=== PATIENT | female | born 1945 | race Asian ===

== ENCOUNTER 2023-09-23 20:25 | Inpatient (IN) | payer MEDICARE, MEDICAID, SELFPAY ==
[2023-09-23] VITALS (13 sets, daily range): BP systolic 92–156; BP diastolic 59–90; PULSE 67–84; RESP 20–40; TEMP 37.3; O2SAT 74–100
--- NOTE | 2023-09-23 20:33 | DI.RAD.S_ITS ---
PROCEDURE: XR CHEST 1V INDICATIONS: Dyspnea TECHNIQUE: One view of the chest was acquired. COMPARISON: None. FINDINGS: Surgical changes and devices: A right-sided vascular stent is seen. Lungs and pleura: Extensive airspace opacities are seen scattered throughout right hemithorax. Subtle opacities also seen in left mid and lower lung field. No pleural effusions or pneumothorax. Mediastinum: Aortic arch calcification is seen. Heart size is enlarged. Bones and chest wall: No suspicious bony lesions. Overlying soft tissues appear unremarkable. IMPRESSION: Finding is concerning for right worse than left bilateral pulmonary infiltrates. No pleural effusion or pneumothorax. Dictated by: Alex Jackson M.D. on 09/23/2023 at 21:04 Approved by: Alex Jackson M.D. on 09/23/2023 at 21:06
[2023-09-23 21:02] LABS: Add Manual Diff / Slide Review NO; Basophils Absolute Auto 100 /uL (0-100); Basophils Percent Auto 0.6 % (0-2); Eosinophils Absolute Auto 500 /uL (0-450); Eosinophils Percent Auto 3.4 % (2-4); Hematocrit 24.9 % (36-46); Hemoglobin 8.4 g/dL (12.0-16.0); Lymphocytes Absolute Auto 800 /uL (1100-4500); Mean Corpuscular HGB Conc 33.7 % (30-36); Mean Corpuscular Hemoglobin 30.2 PG (26-34); Mean Corpuscular Volume 89.6 fL (80-100); Monocytes Absolute Auto 1100 /uL (0-900); Monocytes Percent Auto 7.7 % (3-14); Neutrophils Absolute Auto 11700 /uL (1500-7000); Neutrophils Percent Auto 82.3 % (50-75); Platelet Count 368 X10^3/uL (150-400); Red Blood Cell Count 2.78 X10^6/uL (4.0-5.2); Red Cell Distribution Width 16.6 % (11.6-14.8); White Blood Cell Count 14.2 X10^3/uL (4.5-11.0)
[2023-09-23 21:23] LABS: Alanine Aminotransferase 35 IU/L (<35); Albumin 4.3 g/dL (3.5-5.0); Albumin Globulin Ratio 0.9 (1.0-2.8); Alkaline Phosphatase 115 U/L (38-126); Aspartate Aminotransferase 36 IU/L (14-36); BUN Creatinine Ratio 7.9 (6-22); Bilirubin Total 0.8 mg/dL (0.2-1.3); Blood Urea Nitrogen 51 mg/dL (7-17); Calcium 9.5 mg/dL (8.4-10.2); Carbon Dioxide 33 mmol/L (22-32); Chloride 89 mmol/L (98-107); Estimated Glomerular Filt Rate 6 mL/min (>60); Globulin 4.8 g/dL (1.7-4.1); Glucose 322 mg/dL (80-110); HEMOLYSIS < 15 (0-50); Potassium 4.4 mmol/L (3.4-5.1); Sodium 134 mmol/L (137-145); Total Protein 9.1 g/dL (6.3-8.2)
[2023-09-23 21:34] LABS: NT-proBNP (BNP-Adult 18+) 21600 pg/mL (<450); Troponin I 0.022 ng/mL (0.01-0.034)
[2023-09-23 21:57] LABS: Influenza A - CEPHEID Flu A NEGATIVE (NEGATIVE); Influenza B - CEPHEID Flu B NEGATIVE (NEGATIVE); Respiratory Syncytial Virus Negative (Negative)
[2023-09-23 21:58] LABS: COVID-19 CEPHEID 4-PLEX PCR POSITIVE (Negative)
[2023-09-23] MEDS: DEXAMETHASONE 10 MG/ML VIAL 6 MG IV (22:49)
[2023-09-24] VITALS (83 sets, daily range): BP systolic 83–134; BP diastolic 50–79; PULSE 66–86; RESP 0–52; O2SAT 89–100
[2023-09-24] MEDS: REMDESIVIR 200 MG in SODIUM CHLORIDE 0.9% 250 ML 250 MG IV (00:02)
--- NOTE | 2023-09-24 00:32 | ED_ITS ---
HPI - SOB/Dyspnea General Chief Complaint: Shortness of Breath/Dyspnea Stated Complaint: Oxygen sats at 74% Time Seen by Provider: 09/23/23 20:33 Source: patient and family Mode of arrival: Wheelchair History of Present Illness HPI Narrative: 78-year-old female who presents with hypoxemia, with reported pulse oximetry readings at home in the 70s to 80s on room air. Patient does not require supplemental oxygen at baseline. Patient has a history of chronic kidney disease and is dialysis dependent. Patient's dialysis schedule is Monday, Monday and Monday with patient receiving dialysis yesterday without incident. Family reports that dyspnea has worsened over the last several days and patient has been dealing with cold-like symptoms since Karri. No other complaints or associated symptoms noted. Patient arrives awake, alert, in no apparent distress and maintaining her own airway. Related Data Allergies Allergy/AdvReac Type Severity Reaction Status Date / Time lisinopril Allergy Verified 09/23/23 20:42 Review of Systems Review of Systems Narrative: See HPI for pertinent positives, otherwise review of systems negative Patient History Substance Use Type: does not use Exam Narrative Exam Narrative: General:? Awake, alert, lying in bed during both exam and interview HEENT:? Normocephalic, atraumatic, pupils equal and reactive to light, trachea midline, neck is supple Chest:? Normal to inspection, no crepitus, no tenderness Cardiovascular:? 2+ radial bilaterally, regular rhythm/rate Pulmonary:? Regular respirations, tachypnea, increased work of breathing, rhonchi present in all lung damon bilaterally Abdomen:? Soft, nontender, no hernia Back: ?Normal range of motion :? Exam deferred Skin:? Warm, dry, intact, no rashes Extremities:? No deformities of bilateral upper/lower extremities, non-tender Neuro:? No focal neurological deficits, moving all 4 extremities equally normal speech Psych:? Normal mood, normal affect, normal attention Initial Vital Signs Initial Vital Signs: Vital Signs Temperature 99.1 F 09/23/23 20:26 Pulse Rate 84 09/23/23 20:26 Respiratory Rate 40 H 09/23/23 20:26 Blood Pressure 156/72 H 09/23/23 20:26 Pulse Oximetry 74 L 09/23/23 20:26 Oxygen Delivery Method Room Air 09/23/23 20:26 Course Course Course Narrative: See MDM Orders Ordered: ED Orders 09/24/23 00:32 ABG [Arterial Blood Gas] Stat 09/24/23 04:25 Urinalysis and Microscopic Stat Discontinued Medications Dexamethasone (Dexamethasone 10 Mg/Ml Vial) 6 mg IV NOW ONE Stop: 09/23/23 22:40 Last Admin: 09/23/23 22:49 Dose: 6 mg Documented By: MAHAMED Remdesivir 200 mg/ Sodium (Chloride) 250 mls @ 250 mls/hr IV NOW ONE Stop: 09/24/23 00:49 Last Infusion: 09/24/23 01:17 Dose: Infused Documented By: Admin: 09/24/23 00:02 Dose: 250 mls/hr Documented By: MAHAMED Sodium Chloride (Normal Saline 0.9%) 1,000 mls @ 1,000 mls/hr IV BOLUS ONE Stop: 09/24/23 03:33 Last Admin: 09/24/23 06:05 Dose: Not Given Documented By: MAHAMED Vital Signs Vital signs: Vital Signs - 8 hr 09/23/23 23:00 09/23/23 23:01 09/23/23 23:01 Pulse Rate 72 72 Respiratory Rate 20 23 Blood Pressure 92/59 L Pulse Oximetry 88 L 89 L Oxygen Delivery Method Oximask Oximask Oxygen Flow Rate 8 8 09/23/23 23:30 09/23/23 23:31 09/23/23 23:31 Pulse Rate 67 67 Respiratory Rate 23 25 H Blood Pressure 106/66 Pulse Oximetry 100 100 Oxygen Delivery Method Non -Rebreather Non -Rebreather Oxygen Flow Rate 15 09/24/23 00:00 09/24/23 00:30 09/24/23 00:30 Pulse Rate 66 74 Respiratory Rate 23 36 H Blood Pressure 102/67 Pulse Oximetry 100 89 L Oxygen Delivery Method Non -Rebreather Oximask Oxygen Flow Rate 15 8 09/24/23 01:00 09/24/23 01:00 09/24/23 01:30 Pulse Rate 74 Respiratory Rate Blood Pressure 92/58 L 90/52 L Pulse Oximetry 95 Oxygen Delivery Method Oximask Oximask Oximask Oxygen Flow Rate 10 10 10 09/24/23 01:30 09/24/23 02:00 09/24/23 02:01 Pulse Rate 70 72 Respiratory Rate 28 H 26 H Blood Pressure 108/58 L Pulse Oximetry 97 97 Oxygen Delivery Method Oxygen Flow Rate 09/24/23 02:01 09/24/23 02:30 09/24/23 02:30 Pulse Rate 71 71 Respiratory Rate 25 H 32 H Blood Pressure 98/55 L Pulse Oximetry 98 98 Oxygen Delivery Method Oximask Oximask Oxygen Flow Rate 10 8 09/24/23 03:00 09/24/23 03:00 09/24/23 03:30 Pulse Rate 67 Respiratory Rate 36 H Blood Pressure 84/56 L 92/54 L Pulse Oximetry 100 Oxygen Delivery Method Oximask Oxygen Flow Rate 10 09/24/23 03:30 09/24/23 04:00 09/24/23 04:00 Pulse Rate 72 78 Respiratory Rate 29 H 26 H Blood Pressure 132/79 Pulse Oximetry 100 94 Oxygen Delivery Method Oximask Oximask Oxygen Flow Rate 8 8 09/24/23 04:30 09/24/23 04:31 09/24/23 04:31 Pulse Rate 72 72 Respiratory Rate 52 H 49 H Blood Pressure 86/59 L Pulse Oximetry 96 96 Oxygen Delivery Method Oximask Oximask Oxygen Flow Rate 6 6 09/24/23 05:00 09/24/23 05:00 09/24/23 05:30 Pulse Rate 77 75 Respiratory Rate 28 H 29 H Blood Pressure 93/63 Pulse Oximetry 91 95 95 Oxygen Delivery Method Oximask Oximask Oxygen Flow Rate 10 10 09/24/23 06:00 09/24/23 06:00 09/24/23 06:30 Pulse Rate 76 70 Respiratory Rate 31 H Blood Pressure 105/57 L Pulse Oximetry 93 94 Oxygen Delivery Method Oximask Oxygen Flow Rate 10 09/24/23 06:31 09/24/23 06:31 Pulse Rate 70 Respiratory Rate Blood Pressure 99/50 L Pulse Oximetry 95 Oxygen Delivery Method Oxygen Flow Rate MDM - SOB/Dyspnea Differential Diagnosis Differential diagnosis: Likely acute exacerbation of chronic obstructive airways disease, congestive heart failure, community acquired pneumonia, asthma with exacerbation, pulmonary embolism and other (Pulmonary edema, viral syndrome) Lab Data Lab results narrative: Leukocytosis, hyponatremia, laboratory findings consistent with chronic kidney disease 09/23/23 20:50 09/23/23 20:50 Labs: Lab Results 09/23/23 09/23/23 09/24/23 Range/Units 20:50 20:55 00:32 WBC 14.2 H (4.5-11.0) X10^3/uL RBC 2.78 L (4.0-5.2) X10^6/uL Hgb 8.4 L (12.0-16.0) g/dL Hct 24.9 L (36-46) % MCV 89.6 (80-100) fL MCH 30.2 (26-34) PG MCHC 33.7 (30-36) % RDW 16.6 H (11.6-14.8) % Plt Count 368 (150-400) X10^3/uL Neut % (Auto) 82.3 H (50-75) % Lymph % (Auto) 6.0 L (25-40) % Wright % (Auto) 7.7 (3-14) % Eos % (Auto) 3.4 (2-4) % Baso % (Auto) 0.6 (0-2) % Neut # (Auto) 23414 H (5356-4648) /uL Lymph # (Auto) 800 L (7075-1837) /uL Wright # (Auto) 1100 H (0-900) /uL Eos # (Auto) 500 H (0-450) /uL Baso # (Auto) 100 (0-100) /uL ABG Sample Site Left radial ABG pH 7.47 H (7.35-7.45) ABG pCO2 45.5 H (35-45) mmHg ABG pO2 48 L* (80-100) mmHg ABG HCO3 33 H (23-27) mmol/L ABG Total CO2 34 H (23-27) mmol/L ABG O2 Saturation 85 L* (95-100) % ABG Base Excess 9.0 H (-2-3) mmol/L FiO2 70 Sodium 134 L (137-145) mmol/L Potassium 4.4 (3.4-5.1) mmol/L Chloride 89 L (98-107) mmol/L Carbon Dioxide 33 H (22-32) mmol/L BUN 51 H (7-17) mg/dL Creatinine 6.42 H (0.52-1.04) mg/dL Estimated GFR 6 L (>60) mL/min BUN/Creatinine Ratio 7.9 (6-22) Glucose 322 H (80-110) mg/dL Calcium 9.5 (8.4-10.2) mg/dL Total Bilirubin 0.8 (0.2-1.3) mg/dL AST 36 (14-36) IU/L ALT 35 H (<35) IU/L Alkaline Phosphatase 115 (38-126) U/L Troponin I 0.022 (0.01-0.034) ng/mL NT-Pro-B Natriuret Pep 77340 H (<450) pg/mL Total Protein 9.1 H (6.3-8.2) g/dL Albumin 4.3 (3.5-5.0) g/dL Globulin 4.8 H (1.7-4.1) g/dL Albumin/Globulin Ratio 0.9 L (1.0-2.8) SARS-CoV-2 (PCR) Positive H (Negative) Influenza A (RT-PCR) Flu a negative (NEGATIVE) Influenza B (RT-PCR) Flu b negative (NEGATIVE) RSV (PCR) Negative (Negative) ECG Data Interpretation: 09/23/2023 at 8:42 p.m., 81 beats per minute, normal sinus rhythm, normal axis, artifact, NM interval 81 beats per minute, prolonged QTC at 494 milliseconds, abnormal EKG MDM Narrative Medical decision making narrative: Patient presents with hypoxemia and acute respiratory failure requiring supplemental oxygen. Patient currently being maintained on 10 L OxyMask with pulse oximetry now reading 96%, normal pulse oximetry on supplemental oxygen. Patient is afebrile. EKG is not suggestive of ACS or significant conduction disturbance. Laboratory findings consistent with chronic kidney disease. Chest x-ray is concerning for atypical/viral pneumonia. COVID-19 positive. Decadron 6 mg IV given along with REmdesivir. Patient is stable and warrants transfer due to dialysis requirements that are unable to be filled here in this hospital. Patient currently is pending transfer to outside facility for inpatient management of COVID pneumonia, acute hypoxic respiratory failure and chronic kidney disease requiring dialysis. Patient stable and signed out to oncoming provider. Please see their note for continuity of care. Discharge Plan Departure Patient Disposition: [facility] Clinical Impression: COVID-19, Hypoxemia, CKD (chronic kidney disease) requiring chronic dialysis
[2023-09-24 00:50] LABS: PCO2 ABG 45.5 mmHg (35-45); pH ABG 7.47 (7.35-7.45)
[2023-09-24 00:51] LABS: Blood Gas Collection Site Left Radial; Fractionated Inspired Oxygen 70; HCO3 ABG 33 mmol/L (23-27); Oxygen Saturation ABG 85 % (95-100); PO2 ABG 48 mmHg (80-100); TCO2 ABG 34 mmol/L (23-27)
[2023-09-24 00:52] LABS: Allen Test for ABG Passed? Yes, Passed
[2023-09-24 11:05] LABS: Appearance Urine UA CLOUDY; Bilirubin Urine UA 1+ (NEGATIVE); Glucose Urine UA NEGATIVE (Negative); Ketones Urine UA TRACE (NEGATIVE); Leukocyte Esterase Urine UA NEGATIVE (NEGATIVE); Nitrite Urine UA NEGATIVE (Negative); Occult Blood Urine UA 3+ (Negative); Protein Urine UA TRACE (Negative); Specific Gravity Urine UA >=1.030 (1.000-1.035); Urobilinogen Urine UA 0.2 E.U./dL (0.2)
[2023-09-24 11:10] LABS: Color Urine UA YELLOW
[2023-09-24 11:22] LABS: Bacteria Urine None Seen; RBC Urine 10-30/HPF (0-5/HPF); Squamous Epithelial Cell Urine None Seen (0-5/HPF); WBC Urine 0-1/HPF (0-5/HPF)
[2023-09-24 11:23] LABS: Amorphous Sediment Urine 4+; Culture Indicated Urine Cult Not Indicated
[2023-09-24] MEDS: INSULIN GLARGINE 100 UNIT/ML 3ML PEN 30 UNIT SUBCUT ×2 (12:32→21:21)
--- NOTE | 2023-09-24 12:53 | PC.NURSE ---
patients daughter in room feeding and cleaning the patient's teeth. While doing oral care the patient coughed and her 02 sat dropped to 90% on 10L oxy mask. The patient's daughter was instructed to be careful about giving her PO fluids or anything by mouth while she was in the beach chair position. The patient was placed in her left side and her oxygenation improved to 97%. The patient is comfortably resting and not in distress at this time.
--- NOTE | 2023-09-24 14:12 | PC.NURSE ---
Addendum entered by Elisabeth Ramon CNA 09/25/23 15:30: Around 1400, this pit shovel operator spoke with [facility], [facility] and Ailyn Linder regarding another pt. and asked for an update on pt. Juan, still no new bed update. [id number] this pit shovel operator contacted [facility] and spoke with Tarun about updated transfer status regarding this pt. No new update at this time, pt. is waitlisted at [facility], [facility] and [facility]. [place] are not accepting pt. to be waitlisted at this time. [place] [facility] [place] transfer center is also at capacity and will not accept pt. on waitlist either. There is a paper copy of record at the [facility] desk of facilities, times/dates and persons spoke with regarding this pt. Will re-contact [facility] at 1900 for update on bed status regarding pt. transfer. Addendum entered by Elisabeth Ramon CNA 09/25/23 09:02: [facility] contacted ED and spoke with this IMPLEMENTATION SPECIALIST PAYROLL about pt. transfer, updated [facility] on pt. is on high flow and still requiring transfer. [facility] is still working on pt. transfer at this time. Addendum entered by Elisabeth Ramon CNA 09/25/23 07:27: xfer ctr. called asked for an update on pt. needing placement, verified that pt. is still on high flow. Addendum entered by Elisabeth Ramon CNA 09/24/23 14:54: this pit shovel operator spoke with pete Roman at [facility], possible bed opening later today, if a bed opens at facility pete forde will call [facility] Original Note: IMPLEMENTATION SPECIALIST PAYROLL note: Contacted facilities that pt. is waitlisted on and no new bed status was available at [facility], [facility], [facility], [facility], and . [id number] today, [facility] contacted the ER and spoke with this IMPLEMENTATION SPECIALIST PAYROLL about this pt. verified that [facility] is working on placement for pt. and no new information about pt. was available.
[2023-09-24] MEDS: SODIUM CHLORIDE 0.9% 1,000 ML 500 ML IV ×2 (15:07→17:04)
[2023-09-24] MEDS: INSULIN REGULAR 100 UNIT/ML 3 ML VIAL 10 UNIT IV (15:17)
[2023-09-24 15:50] LABS: Add Manual Diff / Slide Review NO; Basophils Absolute Auto 100 /uL (0-100); Basophils Percent Auto 0.5 % (0-2); Eosinophils Absolute Auto 0 /uL (0-450); Eosinophils Percent Auto 0.1 % (2-4); Hematocrit 23.1 % (36-46); Hemoglobin 7.8 g/dL (12.0-16.0); Lymphocytes Absolute Auto 500 /uL (1100-4500); Lymphocytes Percent Auto 4.1 % (25-40); Mean Corpuscular HGB Conc 33.7 % (30-36); Mean Corpuscular Volume 89.1 fL (80-100); Monocytes Absolute Auto 100 /uL (0-900); Monocytes Percent Auto 0.7 % (3-14); Neutrophils Absolute Auto 11300 /uL (1500-7000); Neutrophils Percent Auto 94.6 % (50-75); Platelet Count 340 X10^3/uL (150-400); Red Blood Cell Count 2.59 X10^6/uL (4.0-5.2); Red Cell Distribution Width 16.8 % (11.6-14.8); White Blood Cell Count 11.9 X10^3/uL (4.5-11.0)
[2023-09-24 16:30] LABS: BUN Creatinine Ratio 9.4 (6-22); Blood Urea Nitrogen 70 mg/dL (7-17); Calcium 9.2 mg/dL (8.4-10.2); Carbon Dioxide 29 mmol/L (22-32); Chloride 90 mmol/L (98-107); Estimated Glomerular Filt Rate 5 mL/min (>60); Glucose 393 mg/dL (80-110); HEMOLYSIS 18 (0-50); Lactate (Lactic Acid) 1.9 mmol/L (0.7-2.1); Potassium 4.7 mmol/L (3.4-5.1); Sodium 134 mmol/L (137-145)
[2023-09-24] MEDS: REMDESIVIR 100 MG in SODIUM CHLORIDE 0.9% 250 ML 250 MG IV (17:04)
[2023-09-24] MEDS: INSULIN DRIP PREMIX 100 UNIT/100 ML PLAST..BAG 6 UNIT IV (20:37)
[2023-09-24] MEDS: ENOXAPARIN 40 MG/0.4 ML SYRINGE SUBCUT (20:44)
[2023-09-24 20:54] LABS: BUN Creatinine Ratio 9.3 (6-22); Blood Urea Nitrogen 67 mg/dL (7-17); Calcium 8.8 mg/dL (8.4-10.2); Carbon Dioxide 25 mmol/L (22-32); Chloride 96 mmol/L (98-107); Estimated Glomerular Filt Rate 5 mL/min (>60); Glucose 335 mg/dL (80-110); HEMOLYSIS < 15 (0-50); Sodium 136 mmol/L (137-145)
[2023-09-24] MEDS: SODIUM CHLORIDE 0.9% 500 ML 25 ML IV (21:00)
[2023-09-24] MEDS: ATORVASTATIN 20 MG TABLET 40 MG PO (21:25)
[2023-09-24] MEDS: allopurinoL 100 MG TABLET PO (21:29)
[2023-09-25] VITALS (66 sets, daily range): BP systolic 87–150; BP diastolic 49–87; PULSE 57–77; RESP 18–40; TEMP 36.8; O2SAT 90–98; BMI 28.9
[2023-09-25 00:56] LABS: Blood Urea Nitrogen 70 mg/dL (7-17); Carbon Dioxide 26 mmol/L (22-32); Chloride 98 mmol/L (98-107); Estimated Glomerular Filt Rate 5 mL/min (>60); Glucose 182 mg/dL (80-110); HEMOLYSIS < 15 (0-50); Potassium 4.4 mmol/L (3.4-5.1); Sodium 138 mmol/L (137-145)
[2023-09-25 04:24] LABS: Add Manual Diff / Slide Review NO; Basophils Absolute Auto 100 /uL (0-100); Basophils Percent Auto 0.3 % (0-2); Eosinophils Absolute Auto 0 /uL (0-450); Lymphocytes Absolute Auto 700 /uL (1100-4500); Lymphocytes Percent Auto 4.5 % (25-40); Mean Corpuscular HGB Conc 33.1 % (30-36); Mean Corpuscular Hemoglobin 29.4 PG (26-34); Mean Corpuscular Volume 88.8 fL (80-100); Monocytes Absolute Auto 700 /uL (0-900); Monocytes Percent Auto 4.5 % (3-14); Neutrophils Absolute Auto 13600 /uL (1500-7000); Neutrophils Percent Auto 90.7 % (50-75); Platelet Count 361 X10^3/uL (150-400); Red Cell Distribution Width 16.8 % (11.6-14.8)
[2023-09-25 04:34] LABS: BUN Creatinine Ratio 9.4 (6-22); Blood Urea Nitrogen 75 mg/dL (7-17); Calcium 9.2 mg/dL (8.4-10.2); Carbon Dioxide 28 mmol/L (22-32); Chloride 98 mmol/L (98-107); Estimated Glomerular Filt Rate 5 mL/min (>60); Glucose 105 mg/dL (80-110); HEMOLYSIS < 15 (0-50); Potassium 4.7 mmol/L (3.4-5.1); Sodium 139 mmol/L (137-145)
[2023-09-25] MEDS: INSULIN GLARGINE 100 UNIT/ML 3ML PEN 30 UNIT SUBCUT (08:06)
[2023-09-25] MEDS: ENOXAPARIN 40 MG/0.4 ML SYRINGE SUBCUT (08:19)
[2023-09-25] MEDS: TORSEMIDE 10 MG TABLET 40 MG PO (08:20)
[2023-09-25] MEDS: carvediloL 12.5 MG TABLET PO ×2 (08:20→20:52)
[2023-09-25] MEDS: allopurinoL 100 MG TABLET PO ×2 (08:21→20:53)
--- NOTE | 2023-09-25 11:19 | PC.NURSE ---
patient responds to oxygen better when on her left side. She was placed on her back in low beach chair and o2 saturation remained around 90% on 10L Oyxmask. When placed on her left side, her O2 went up to 98%.
--- NOTE | 2023-09-25 15:03 | RT ---
Turned o2 down to 50%
--- NOTE | 2023-09-25 15:45 | PC.NURSE ---
This RN assisted patient off the commode. Patient has no visible skin breakdown on back, bottom, or black area. Patient assisted with hygiene and was able to transfer back to bed with stand by assist.
--- NOTE | 2023-09-25 17:34 | PC.NURSE ---
This patient had her insulin infusion paused by overnight RN. This RN wasted remaining insulin infusion and timed for time of the insulin was paused.
--- NOTE | 2023-09-25 17:37 | PM.CN.EICU ---
History of Present Illness Consult details IF CAMERA ACTIVATED, patient seen via real-time interactive audiovisual communication: Camera activated Date Patient Seen: 09/25/23 Chief complaint: Oxygen sats at 74% Reason for consult: COVID PNA, hypoxemic respiratory failure Requesting provider: Rowdy Flores Consent obtained for tele-it sales representative care: Yes Patient Location: ICU Provider location (State): [place] Other participants/roles: Dr. Flores Narrative: 78 yo F with HTN, DM2, ESRD on HD- Last HD on Monday . She presented to ED with SOB and hypoxemia. Found to be covid + and started on hi flow NC. Currently on decadron, remdesivir and CAP coverage abx. [facility] does not have HD capability, so patient slated to be transferred, however there has been difficulty finding ICU bed for her In mean time she will be admitted to ICU for ongoing care while she awaits transfer to a facility that can accomodate HD Currently her BUN is 71 Cr 8 K 4.7. BNP [id number] She is full code [facility] Medical History (Updated 09/25/23 @ 18:49 by Nguyen Asencio MD) Diabetes Hypertension Current Medications Current Medications Medications: Home Medications allopurinol 100 mg tablet 200 mg PO DAILY 09/24/23 [History Confirmed 09/24/23] amlodipine 10 mg tablet 10 mg PO ONCE PM 09/24/23 [History Confirmed 09/24/23] atorvastatin 40 mg tablet 40 mg PO ONCE PM 09/24/23 [History Confirmed 09/24/23] carvedilol 12.5 mg tablet 12.5 mg PO BID 09/24/23 [History Confirmed 09/24/23] insulin glargine 100 unit/mL subcutaneous solution (Lantus U-100 Insulin) 30 unit SUBCUT BID 09/24/23 [History Confirmed 09/24/23] meclizine 25 mg tablet 25 mg PO QID PRN vertigo 09/24/23 [History Confirmed 09/24/23] torsemide 20 mg tablet 40 mg PO DAILY 09/24/23 [History Confirmed 09/24/23] Visit Medications (administered) Generic Name Dose Route Start Last Admin Trade Name Freq PRN Reason Stop Dose Admin Allopurinol 100 mg 09/24/23 21:00 09/25/23 08:21 Allopurinol 100 Mg Tablet PO 100 mg BID JOVANNY Administration Amlodipine Besylate 10 mg 09/24/23 21:00 09/24/23 21:13 Amlodipine 5 Mg Tablet PO Not Given BEDTIME [facility] Atorvastatin Calcium 40 mg 09/24/23 21:00 09/24/23 21:25 Atorvastatin 20 Mg Tablet PO 40 mg BEDTIME JOVANNY Administration Carvedilol 12.5 mg 09/24/23 21:00 09/25/23 08:20 Carvedilol 12.5 Mg Tablet PO 12.5 mg BID JOVANNY Administration Insulin Glargine 30 unit 09/24/23 21:00 09/25/23 08:06 Insulin Glargine 100 Unit/Ml 3ml Pen SUBCUT 30 unit BID JOVANNY Administration Torsemide 40 mg 09/25/23 09:00 09/25/23 08:20 Torsemide 10 Mg Tablet PO 40 mg DAILY JOVANNY Administration Exam Vital Signs (past 8 hours): - 09/25/23 10:00 09/25/23 10:00 09/25/23 10:30 Pulse Rate 59 L 58 L Respiratory Rate 21 33 H Blood Pressure 120/65 Pulse Oximetry 94 93 Oxygen Delivery Method High Flow Nasal Cannula High Flow Nasal Cannula Oxygen Flow Rate 35 35 09/25/23 10:52 09/25/23 11:00 09/25/23 11:00 Pulse Rate 64 66 Respiratory Rate 18 24 Blood Pressure 120/65 128/77 Pulse Oximetry 94 96 Oxygen Delivery Method High Flow Nasal Cannula Oxygen Flow Rate 35 09/25/23 11:30 09/25/23 12:00 09/25/23 12:00 Pulse Rate 66 70 Respiratory Rate 30 H 28 H Blood Pressure 120/58 L Pulse Oximetry 95 92 Oxygen Delivery Method Oxygen Flow Rate 35 09/25/23 12:30 09/25/23 13:00 09/25/23 13:00 Pulse Rate 66 61 Respiratory Rate 30 H 26 H Blood Pressure 95/55 L Pulse Oximetry 96 96 Oxygen Delivery Method Oxygen Flow Rate 09/25/23 13:30 09/25/23 14:00 09/25/23 14:00 Pulse Rate 62 59 L Respiratory Rate 24 22 Blood Pressure 90/50 L Pulse Oximetry 95 93 Oxygen Delivery Method High Flow Nasal Cannula High Flow Nasal Cannula Oxygen Flow Rate 55 55 09/25/23 14:30 09/25/23 14:54 09/25/23 14:54 Pulse Rate 57 L 65 Respiratory Rate 24 25 H Blood Pressure 97/60 Pulse Oximetry 93 96 Oxygen Delivery Method High Flow Nasal Cannula High Flow Nasal Cannula Oxygen Flow Rate 55 55 09/25/23 15:00 09/25/23 15:00 09/25/23 15:01 Pulse Rate 67 64 Respiratory Rate 22 18 Blood Pressure 96/63 Pulse Oximetry 95 96 Oxygen Delivery Method High Flow Nasal Cannula Oxygen Flow Rate 55 09/25/23 15:30 09/25/23 15:34 09/25/23 15:34 Pulse Rate 72 69 Respiratory Rate 30 H Blood Pressure 87/49 L Pulse Oximetry 95 97 Oxygen Delivery Method High Flow Nasal Cannula High Flow Nasal Cannula Oxygen Flow Rate 50 50 09/25/23 15:36 09/25/23 15:36 09/25/23 15:37 Pulse Rate 68 Respiratory Rate 32 H Blood Pressure 91/56 L 91/56 L Pulse Oximetry 97 Oxygen Delivery Method High Flow Nasal Cannula Oxygen Flow Rate 50 09/25/23 15:37 09/25/23 15:38 09/25/23 15:38 Pulse Rate 68 66 Respiratory Rate 31 H 28 H Blood Pressure 93/54 L Pulse Oximetry 96 96 Oxygen Delivery Method High Flow Nasal Cannula High Flow Nasal Cannula Oxygen Flow Rate 50 50 09/25/23 15:39 09/25/23 15:39 09/25/23 15:40 Pulse Rate 66 Respiratory Rate 28 H Blood Pressure 93/53 L 89/55 L Pulse Oximetry 96 Oxygen Delivery Method High Flow Nasal Cannula Oxygen Flow Rate 50 09/25/23 15:40 09/25/23 16:00 09/25/23 16:00 Pulse Rate 66 66 Respiratory Rate 33 H 21 Blood Pressure 92/61 Pulse Oximetry 96 96 Oxygen Delivery Method High Flow Nasal Cannula Oxygen Flow Rate 50 09/25/23 16:30 09/25/23 16:30 Pulse Rate 65 Respiratory Rate 24 Blood Pressure 100/55 L Pulse Oximetry 96 Oxygen Delivery Method Oxygen Flow Rate Oxygen Delivery Method High Flow Nasal Cannula Oxygen Flow Rate 50 Narrative Exam Narrative: Sitting in bed, on hi flow NC No distress speaking in full sentenes, with no SOB Current hi flow settings 35 L 50% Objective Imaging Chest x-ray: Radiologist's impression: bilateral pulmonary infiltrates Labs 09/25/23 04:15 09/25/23 04:15 Labs: Laboratory Results - last 24 hr 09/24/23 09/25/23 09/25/23 20:25 00:35 04:15 WBC 15.0 H RBC 2.70 L Hgb 8.0 L Hct 24.0 L MCV 88.8 MCH 29.4 MCHC 33.1 RDW 16.8 H Plt Count 361 Neut % (Auto) 90.7 H Lymph % (Auto) 4.5 L D[place]y % (Auto) 4.5 Eos % (Auto) 0.0 L Baso % (Auto) 0.3 Neut # (Auto) 28710 H Lymph # (Auto) 700 L Dooly # (Auto) 700 Eos # (Auto) 0 Baso # (Auto) 100 Sodium 136 L 138 139 Potassium 5.0 4.4 4.7 Chloride 96 L 98 98 Carbon Dioxide 25 26 28 BUN 67 H 70 H 75 H Creatinine 7.18 H 7.79 H* 7.96 H* Estimated GFR 5 L 5 L 5 L BUN/Creatinine Ratio 9.3 9.0 9.4 Glucose 335 H 182 H D 105 Calcium 8.8 9.0 9.2 Assessment & Plan Assessment and plan (1) COVID-19: Status: Acute (2) Hypoxemia: Status: Acute (3) CKD (chronic kidney disease) requiring chronic dialysis: Status: Acute (4) Acute respiratory failure: Qualifiers: Respiratory failure complication: hypoxia Qualified Code(s): J96.01 - Acute respiratory failure with hypoxia Status: Acute (5) Diabetes: Qualifiers: Diabetes mellitus type: type 2 Status: Acute Assessment & Plan narrative: 78 F with ESRD on HD admitted to ICU for ongoing treatment and supportive care for COVID 19 PNA, hypoxemic respiratory failure Suspect there is also an element of volume overload. Last HD 3 days ago BNP [id number] She needs transfer to icu that is capable of doing HD, as is needed for fluid removal. BUN also rising and 71 today. K 4.7 Will obtain ABG today In meantime, continue supportive care for covid-19 with hi flow NC steroids, remdesivir CAP coverage- in case of concurrent bacterial PNA check proclacitonin Continue SKEIN SPOOLER medications for HTN, HLD, DM2 continue SKEIN SPOOLER torsemide PPX; heparin sq, famotidine FULL CODE COVID-19 COVID-19 status: Positive Time Spent With Patient Time with patient: 30 to 49 minutes with 50% spent counseling/coordinating care
[2023-09-25 17:41] LABS: Magnesium 2.7 mg/dL (1.6-2.3)
[2023-09-25 17:58] LABS: Procalcitonin 0.23 ng/mL (<0.5)
--- NOTE | 2023-09-25 18:00 | DI.RAD.S_ITS ---
PROCEDURE: XR CHEST 1V INDICATIONS: assess COVID TECHNIQUE: One view of the chest was acquired. COMPARISON: [facility], CR, XR CHEST 1V, 09/23/2023, 20:41. FINDINGS: Surgical changes and devices: Vascular stent in the right axilla. Lungs and pleura: Multifocal airspace opacities, similar to prior. Mediastinum: Mediastinal contours appear normal. Heart size is enlarged. Bones and chest wall: No suspicious bony lesions. Overlying soft tissues appear unremarkable. IMPRESSION: Similar multifocal airspace opacities, concerning for pneumonia. Dictated by: Jerrod Junior M.D. on 09/25/2023 at 18:46 Approved by: Jerrod Junior M.D. on 09/25/2023 at 18:47
--- NOTE | 2023-09-25 18:02 | P.HP_ITS ---
History of Present Illness History of Present Illness Chief complaint: Oxygen sats at 74% Narrative: Hannah Martinez is an 78yo F with PMH of ESRD on MWF dialysis, DM2, HTN and gout who presents with worsening SOB and found to be COVID positive. Patient daughter is at bedside and giving history as well. Patient hasn't felt well since [place], when she developed a flu-like illness. She continued to worsen in terms of her dyspnea so daughter checked her O2 sats and she was 74% on room air. She was brought to our ED and was COVID positive. ABG showed low pO2. Placed on HFNC and was on up to 50L but has now been weaned down to 35L and 50%. ED was working on transfer for her dialysis, which she last received on Friday 09/22. She currently feels comfortable at rest while on HFNC. Says her breathing is much better then when she came in. She would like to be full code because other than dialysis she is otherwise healthy. She denies CP, NV, abd pain or diarrhea. [facility] Medical History (Updated 09/25/23 @ 17:53 by Nguyen Asencio MD) Diabetes Hypertension Meds Home Medications and Allergies Home Medications Medication Instructions Recorded Confirmed Type allopurinol 100 mg tablet 200 mg PO DAILY 09/24/23 09/24/23 History amlodipine 10 mg tablet 10 mg PO ONCE PM 09/24/23 09/24/23 History atorvastatin 40 mg tablet 40 mg PO ONCE PM 09/24/23 09/24/23 History carvedilol 12.5 mg tablet 12.5 mg PO BID 09/24/23 09/24/23 History insulin glargine 100 unit/mL 30 unit SUBCUT BID 09/24/23 09/24/23 History subcutaneous solution (Lantus U-100 Insulin) meclizine 25 mg tablet 25 mg PO QID PRN vertigo 09/24/23 09/24/23 History torsemide 20 mg tablet 40 mg PO DAILY 09/24/23 09/24/23 History Allergies Allergy/AdvReac Type Severity Reaction Status Date / Time lisinopril Allergy Verified 09/23/23 20:42 Review of Systems Review of Systems Narrative: All other systems reviewed with the patient and are negative unless otherwise stated. Exam Vital Signs (past 8 hours): - 09/25/23 10:30 09/25/23 10:52 09/25/23 11:00 Pulse Rate 58 L 64 Respiratory Rate 33 H 18 Blood Pressure 120/65 128/77 Pulse Oximetry 93 94 Oxygen Delivery Method High Flow Nasal Cannula Oxygen Flow Rate 35 09/25/23 11:00 09/25/23 11:30 09/25/23 12:00 Pulse Rate 66 66 Respiratory Rate 24 30 H Blood Pressure 120/58 L Pulse Oximetry 96 95 Oxygen Delivery Method High Flow Nasal Cannula Oxygen Flow Rate 35 35 09/25/23 12:00 09/25/23 12:30 09/25/23 13:00 Pulse Rate 70 66 Respiratory Rate 28 H 30 H Blood Pressure 95/55 L Pulse Oximetry 92 96 Oxygen Delivery Method Oxygen Flow Rate 09/25/23 13:00 09/25/23 13:30 09/25/23 14:00 Pulse Rate 61 62 Respiratory Rate 26 H 24 Blood Pressure 90/50 L Pulse Oximetry 96 95 Oxygen Delivery Method High Flow Nasal Cannula Oxygen Flow Rate 55 09/25/23 14:00 09/25/23 14:30 09/25/23 14:54 Pulse Rate 59 L 57 L Respiratory Rate 22 24 Blood Pressure 97/60 Pulse Oximetry 93 93 Oxygen Delivery Method High Flow Nasal Cannula High Flow Nasal Cannula Oxygen Flow Rate 55 55 09/25/23 14:54 09/25/23 15:00 09/25/23 15:00 Pulse Rate 65 67 Respiratory Rate 25 H 22 Blood Pressure 96/63 Pulse Oximetry 96 95 Oxygen Delivery Method High Flow Nasal Cannula High Flow Nasal Cannula Oxygen Flow Rate 55 55 09/25/23 15:01 09/25/23 15:30 09/25/23 15:34 Pulse Rate 64 72 Respiratory Rate 18 Blood Pressure 87/49 L Pulse Oximetry 96 95 Oxygen Delivery Method High Flow Nasal Cannula Oxygen Flow Rate 50 09/25/23 15:34 09/25/23 15:36 09/25/23 15:36 Pulse Rate 69 68 Respiratory Rate 30 H 32 H Blood Pressure 91/56 L Pulse Oximetry 97 97 Oxygen Delivery Method High Flow Nasal Cannula High Flow Nasal Cannula Oxygen Flow Rate 50 50 09/25/23 15:37 09/25/23 15:37 09/25/23 15:38 Pulse Rate 68 Respiratory Rate 31 H Blood Pressure 91/56 L 93/54 L Pulse Oximetry 96 Oxygen Delivery Method High Flow Nasal Cannula Oxygen Flow Rate 50 09/25/23 15:38 09/25/23 15:39 09/25/23 15:39 Pulse Rate 66 66 Respiratory Rate 28 H 28 H Blood Pressure 93/53 L Pulse Oximetry 96 96 Oxygen Delivery Method High Flow Nasal Cannula High Flow Nasal Cannula Oxygen Flow Rate 50 50 09/25/23 15:40 09/25/23 15:40 09/25/23 16:00 Pulse Rate 66 Respiratory Rate 33 H Blood Pressure 89/55 L 92/61 Pulse Oximetry 96 Oxygen Delivery Method High Flow Nasal Cannula Oxygen Flow Rate 50 09/25/23 16:00 09/25/23 16:30 09/25/23 16:30 Pulse Rate 66 65 Respiratory Rate 21 24 Blood Pressure 100/55 L Pulse Oximetry 96 96 Oxygen Delivery Method Oxygen Flow Rate 09/25/23 17:00 09/25/23 17:00 09/25/23 17:23 Pulse Rate 67 Respiratory Rate 24 Blood Pressure 105/53 L 129/87 Pulse Oximetry 95 Oxygen Delivery Method High Flow Nasal Cannula Oxygen Flow Rate 50 09/25/23 17:23 09/25/23 17:30 09/25/23 17:37 Pulse Rate 77 74 68 Respiratory Rate 28 H 27 H 20 Blood Pressure Pulse Oximetry 98 95 Oxygen Delivery Method Non -Rebreather Non -Rebreather Oxygen Flow Rate 15 15 Oxygen Delivery Method Non -Rebreather Oxygen Flow Rate 15 Narrative Exam Narrative: GEN: no acute distress, breathing comfortably on HFNC HEENT: moist mucous membranes, PERRL NECK: trachea midline, no JVD CV: regular rate and rhythm, no murmurs PULM: coarse breath sounds bilaterally ABD: soft, nontender, nondistended, no organomegaly EXT: warm and well perfused with no edema NEURO: awake, alert, oriented, no focal deficits Objective Labs 09/25/23 04:15 09/25/23 04:15 Labs: Laboratory Results - last 24 hr 09/24/23 09/25/23 09/25/23 20:25 00:35 04:15 WBC 15.0 H RBC 2.70 L Hgb 8.0 L Hct 24.0 L MCV 88.8 MCH 29.4 MCHC 33.1 RDW 16.8 H Plt Count 361 Neut % (Auto) 90.7 H Lymph % (Auto) 4.5 L [place] % (Auto) 4.5 Eos % (Auto) 0.0 L Baso % (Auto) 0.3 Neut # (Auto) 27678 H Lymph # (Auto) 700 L [place] # (Auto) 700 Eos # (Auto) 0 Baso # (Auto) 100 Sodium 136 L 138 139 Potassium 5.0 4.4 4.7 Chloride 96 L 98 98 Carbon Dioxide 25 26 28 BUN 67 H 70 H 75 H Creatinine 7.18 H 7.79 H* 7.96 H* Estimated GFR 5 L 5 L 5 L BUN/Creatinine Ratio 9.3 9.0 9.4 Glucose 335 H 182 H D 105 Calcium 8.8 9.0 9.2 Magnesium 2.7 H Procalcitonin 0.23 Assessment & Plan Assessment & Plan narrative: # acute hypoxic resp failure 2/2 COVID pneumonia -COVID positive on PCR -CXR with bilateral patchy infiltrates R>L, repeat CXR to look for improvement -continue decadron and remdesivir -wean O2 as able, currently on 35L and 50% -continue torsemide to keep dry -procal 0.23, start rocephin and azithro in case of bacterial superinfection -duonebs, mucinex, tessalon perles PRN # ESRD on HD -patient last dialyzed on 09/22 -electrolytes, BUN and bicarb not concerning -continue to monitor with daily BMP's -watch fluid status carefully, avoid IVF -attempt transfer in next 24-48hrs for dialysis # DM2 -increase lantus to 35u BID due to hyperglycemia with steroids -high dose SSI -carb diet # HTN -continue coreg and amlodipine # gout -continue allopurinol I spent a total of 35 minutes of critical care time on this patient's care today; this time is exclusive of procedural time. Code status is full code. DVT prophylaxis with heparin. Proxy is daughter Lakisha. I have reviewed home meds and used all available resources to reconcile the home meds. Case discussed with ED physician/APC and patient will be admitted to the hospitalist service for further workup and management. This patient will be admitted as ICU and will require greater than 2 midnights of hospital time to treat acute hypoxic respiratory failure.
[2023-09-25] MEDS: REMDESIVIR 100 MG in SODIUM CHLORIDE 0.9% 250 ML 250 MG IV (18:16)
[2023-09-25] MEDS: INSULIN LISPRO 100 UNIT/ML 3ML VIAL SUBCUT ×2 (18:17→20:50)
--- NOTE | 2023-09-25 18:49 | PC.NURSE ---
Admit Note Patient arrived at 1720 from ER to room 230. Stood at bedside and transferred self to bed, SBA, does not use any assistive devices at baseline. On heated HFNC at 35L and 50% FiO2. SpO2 95-97%, desatted to mid-90s with activity. Pt is short of breath after activity with visibly labored breathing, recovered with 10 min rest. Denies pain. Alert and oriented x3. Daughter Lakisha in room, supportive. Oriented to room and to call light/bed/tv controls. Bed alarm on for safety.
[2023-09-25] MEDS: cefTRIAXone 1,000 MG in SODIUM CHLORIDE 0.9% 100 ML 200 MG IV (19:14)
[2023-09-25 20:09] LABS: MRSA (Nasal) PCR Not Detected (Not Detect)
[2023-09-25] MEDS: INSULIN GLARGINE 100 UNIT/ML 3ML PEN 35 UNIT SUBCUT (20:49)
[2023-09-25] MEDS: HEPARIN 5,000 UNIT/ML VIAL 5000 UNIT SUBCUT (20:52)
[2023-09-25] MEDS: FAMOTIDINE 20 MG/2 ML VIAL IV (20:52)
[2023-09-25] MEDS: AMLODIPINE 5 MG TABLET 10 MG PO (20:52)
[2023-09-25] MEDS: guaiFENesin ER 600 MG TAB PO (20:52)
[2023-09-25] MEDS: SODIUM CHLORIDE 0.9% FLUSH 10 ML IV (20:53)
[2023-09-25] MEDS: ATORVASTATIN 20 MG TABLET 40 MG PO (20:53)
[2023-09-26] VITALS (36 sets, daily range): BP systolic 74–177; BP diastolic 43–72; PULSE 51–72; RESP 18–40; TEMP 35.6–36.8; O2SAT 90–100
[2023-09-26 05:25] LABS: Add Manual Diff / Slide Review NO; Basophils Absolute Auto 0 /uL (0-100); Basophils Percent Auto 0.2 % (0-2); Eosinophils Absolute Auto 200 /uL (0-450); Eosinophils Percent Auto 1.7 % (2-4); Hemoglobin 8.1 g/dL (12.0-16.0); Lymphocytes Absolute Auto 1300 /uL (1100-4500); Lymphocytes Percent Auto 12.4 % (25-40); Mean Corpuscular HGB Conc 33.9 % (30-36); Mean Corpuscular Hemoglobin 30.8 PG (26-34); Mean Corpuscular Volume 90.9 fL (80-100); Monocytes Absolute Auto 800 /uL (0-900); Monocytes Percent Auto 7.7 % (3-14); Neutrophils Absolute Auto 8200 /uL (1500-7000); Platelet Count 364 X10^3/uL (150-400); Red Blood Cell Count 2.64 X10^6/uL (4.0-5.2); Red Cell Distribution Width 16.4 % (11.6-14.8); White Blood Cell Count 10.6 X10^3/uL (4.5-11.0)
[2023-09-26 05:36] LABS: Magnesium 2.8 mg/dL (1.6-2.3)
[2023-09-26 05:37] LABS: Blood Urea Nitrogen 98 mg/dL (7-17); Calcium 8.9 mg/dL (8.4-10.2); Carbon Dioxide 25 mmol/L (22-32); Chloride 100 mmol/L (98-107); Estimated Glomerular Filt Rate 4 mL/min (>60); HEMOLYSIS < 15 (0-50); Potassium 4.8 mmol/L (3.4-5.1); Sodium 139 mmol/L (137-145)
[2023-09-26 05:55] LABS: Glucose 44 mg/dL (80-110)
--- NOTE | 2023-09-26 06:37 | PC.NURSE ---
Manager Merchandising Note-Patient is A/Ox4. Remains on HHFNC 55%/35L, SpO2 >92% most of the time, has mild apnea, RR 20s. Mild shortness of breath when up to BCS, states I am feeling better Had BM, voided total 200ml clear yellow urine. Lab glucose 44, patient awake, oriented, drank apple juice, CBG recheck 83. VSS.
--- NOTE | 2023-09-26 08:19 | PM.PN.EICU ---
Subjective Subjective IF CAMERA ACTIVATED, patient seen via real-time interactive audiovisual communication: Camera activated Consent obtained for tele-steel welder care: Yes Patient Location: ICU Provider location (State): [place] Other participants/roles: RN Interval history: The patient was seen via real-time interactive audiovisual communication. Camera activated. Briefly, an 78 y/o female with h/o HTN, DM type II, ESRD on HD (last HD on Monday), presented to ED with SOB and hypoxia, tested positive for COVID-19, required to be placed on HFNC due to respiratory distress, presumed to be from COVIVD-19, fluid overload and suspected PNA. [facility] doesn't have dialysis capability and patient is currently awaiting a transfer to another facility where HD can be offered. Overnight, remained relatively stable. RN reported that patient has been having episodes of hypoglycemia with most recent BG 101. Has been tolerating PO diet. Denies any fever, chills, chest pain or SOB at rest. Still remains on HFNC at 35 L/min and 55% FiO2. Most recent labs/imaging studies reviewed. WBC now down to 10.6, Hb stable at 8.1. BUN increased to 98 from 75 and Creat up at 8.93 from 7.96. CXR with multifocal opacity concerning for PNA vs fluid overload. Current Medications Current Medications Medications: Home Medications allopurinol 100 mg tablet 200 mg PO DAILY 09/24/23 [History Confirmed 09/24/23] amlodipine 10 mg tablet 10 mg PO ONCE PM 09/24/23 [History Confirmed 09/24/23] atorvastatin 40 mg tablet 40 mg PO ONCE PM 09/24/23 [History Confirmed 09/24/23] carvedilol 12.5 mg tablet 12.5 mg PO BID 09/24/23 [History Confirmed 09/24/23] insulin glargine 100 unit/mL subcutaneous solution (Lantus U-100 Insulin) 30 unit SUBCUT BID 09/24/23 [History Confirmed 09/24/23] meclizine 25 mg tablet 25 mg PO QID PRN vertigo 09/24/23 [History Confirmed 09/24/23] torsemide 20 mg tablet 40 mg PO DAILY 09/24/23 [History Confirmed 09/24/23] Visit Medications (administered) Generic Name Dose Route Start Last Admin Trade Name Freq PRN Reason Stop Dose Admin Allopurinol 100 mg 09/24/23 21:00 09/25/23 20:53 Allopurinol 100 Mg Tablet PO 100 mg BID JOVANNY Administration Amlodipine Besylate 10 mg 09/24/23 21:00 09/25/23 20:52 Amlodipine 5 Mg Tablet PO 10 mg BEDTIME JOVANNY Administration Atorvastatin Calcium 40 mg 09/24/23 21:00 09/25/23 20:53 Atorvastatin 20 Mg Tablet PO 40 mg BEDTIME JOVANNY Administration Carvedilol 12.5 mg 09/24/23 21:00 09/25/23 20:52 Carvedilol 12.5 Mg Tablet PO 12.5 mg BID JOVANNY Administration Famotidine 20 mg 09/25/23 21:00 09/25/23 20:52 Famotidine 20 Mg/2 Ml Vial IV 20 mg BID JOVANNY Administration Guaifenesin 600 mg 09/25/23 21:00 09/25/23 20:52 Guaifenesin Er 600 Mg Tab PO 600 mg BID JOVANNY Administration Heparin Sodium (Porcine) 5,000 unit 09/25/23 21:00 09/25/23 20:52 Heparin 5,000 Unit/Ml Vial SUBCUT 5,000 unit BID JOVANNY Administration Remdesivir 100 mg/ Sodium 250 mls @ 250 mls/hr 09/25/23 17:00 09/25/23 19:19 Chloride IV 10/01/23 17:59 Infused 1700 JOVANNY Infusion Ceftriaxone Sodium 1,000 mg/ 100 mls @ 200 mls/hr 09/25/23 18:00 09/25/23 19:14 Sodium Chloride IV 09/29/23 18:29 200 mls/hr Q24H JOVANNY Administration Insulin Glargine 35 unit 09/25/23 21:00 09/25/23 20:49 Insulin Glargine 100 Unit/Ml 3ml Pen SUBCUT 35 unit BID JOVANNY Administration Insulin Human Lispro 0 unit 09/25/23 21:00 09/25/23 20:50 Insulin Lispro 100 Unit/Ml 3ml Vial SUBCUT 5 unit ACHS [facility] Administration Protocol Sodium Chloride 10 ml 09/25/23 21:00 09/25/23 20:53 Sodium Chloride 0.9% Flush IV 10 ml BID JOVANNY Administration Torsemide 40 mg 09/25/23 09:00 09/25/23 08:20 Torsemide 10 Mg Tablet PO 40 mg DAILY JOVANNY Administration Objective Ventilator Parameters: Ventilator Settings FiO2 49 Labs 09/26/23 04:50 09/26/23 04:50 Labs: Laboratory Results - last 24 hr 09/25/23 09/25/23 09/26/23 04:15 18:17 04:50 WBC 10.6 RBC 2.64 L Hgb 8.1 L Hct 24.0 L MCV 90.9 MCH 30.8 MCHC 33.9 RDW 16.4 H Plt Count 364 Neut % (Auto) 78.0 H Lymph % (Auto) 12.4 L [place] % (Auto) 7.7 Eos % (Auto) 1.7 L Baso % (Auto) 0.2 Neut # (Auto) 8200 H Lymph # (Auto) 1300 [place] # (Auto) 800 Eos # (Auto) 200 Baso # (Auto) 0 Sodium 139 Potassium 4.8 Chloride 100 Carbon Dioxide 25 BUN 98 H Creatinine 8.93 H* Estimated GFR 4 L BUN/Creatinine Ratio 11.0 Glucose 44 L* Calcium 8.9 Magnesium 2.7 H 2.8 H Procalcitonin 0.23 Nasal Screen MRSA (PCR) Not detected Exam Vital Signs (past 8 hours): - 09/26/23 00:30 09/26/23 01:00 09/26/23 01:00 Temperature 98.3 F Pulse Rate 62 62 Respiratory Rate 40 H 27 H Blood Pressure 149/66 H Pulse Oximetry 94 91 Oxygen Delivery Method Oxygen Flow Rate 35 09/26/23 01:20 09/26/23 01:30 09/26/23 02:00 Temperature Pulse Rate 60 59 L 58 L Respiratory Rate 26 H 22 19 Blood Pressure Pulse Oximetry 95 95 93 Oxygen Delivery Method Oxygen Flow Rate 09/26/23 02:01 09/26/23 02:01 09/26/23 02:30 Temperature Pulse Rate 53 L 56 L Respiratory Rate 18 23 Blood Pressure 139/63 Pulse Oximetry 90 L 91 Oxygen Delivery Method Oxygen Flow Rate 09/26/23 03:00 09/26/23 03:01 09/26/23 03:01 Temperature Pulse Rate 54 L 60 Respiratory Rate 23 25 H Blood Pressure 135/64 Pulse Oximetry 90 L 94 Oxygen Delivery Method Oxygen Flow Rate 09/26/23 03:30 09/26/23 04:00 09/26/23 04:00 Temperature Pulse Rate 52 L 55 L Respiratory Rate 22 21 Blood Pressure 150/64 H Pulse Oximetry 91 92 Oxygen Delivery Method Oxygen Flow Rate 09/26/23 04:30 09/26/23 05:00 09/26/23 05:00 Temperature Pulse Rate 53 L Respiratory Rate 22 Blood Pressure 158/69 H Pulse Oximetry 91 Oxygen Delivery Method Heated High Flow Oxygen Flow Rate 09/26/23 05:00 09/26/23 05:25 09/26/23 05:30 Temperature Pulse Rate 59 L 59 L 56 L Respiratory Rate 22 20 Blood Pressure Pulse Oximetry 95 92 98 Oxygen Delivery Method Oxygen Flow Rate 09/26/23 06:00 Temperature Pulse Rate 56 L Respiratory Rate 24 Blood Pressure Pulse Oximetry 98 Oxygen Delivery Method Oxygen Flow Rate Oxygen Delivery Method Heated High Flow Oxygen Flow Rate 35 Narrative Exam Narrative: Sitting in bed, on hi flow NC No apparent distress speaking in full sentenes, with no SOB Current hi flow settings 35 L 55% Quality TeleICU VTE Deep Vein Thrombosis/Pulmonary Embolism Present on Admission: No Assessment & Plan Assessment & Plan narrative: Briefly, an 78 y/o female with h/o HTN, DM type II, ESRD on HD (last HD on Monday), presented to ED with SOB and hypoxia, tested positive for COVID-19, required to be placed on HFNC due to respiratory distress, presumed to be from COVIVD-19, fluid overload and suspected PNA. # Acute hypoxic respiratory failure - Likely multifactorial. Combination of COVID pneumonia + Fluid overload and possibly superimposed bacterial PNA. - Most recent CXR with multifocal airspace opacities. - C/w HFNC, wean supplemental O2 as tolerated with goal SPO2 88-92%. - Continue with decadron and remdesivir. - Agree with covering her with empiric rocephin and azithro for suspected bacterial superinfection - C/w duonebs, mucinex, tessalon perles PRN # ESRD on HD / Fluid overload: - Last reported HD on 09/22 - Patient needs urgent HD mainly for fluid removal and worsening BUN. - Monitor renal panel at least q12 hours. - Avoid administering any crystalloid. - Continue ongoing attempts to transfer her for dialysis. # Hypoglycemia / DM2: - Will need to adjust insulin regimen if continues to have BG <120. - Monitor accu checks Q2 hours for at least 12 hours. - Would decrease Lantus to 25 units BID. Goal to keep BG 120-180. - If no improvement in hypoglycemia, add D10 drip art 25 cc/hr. Code status is full code. DVT prophylaxis - Heparin subcu. GI Prophylaxis - Pepcid. D/w bedside RN and patient. COVID-19 COVID-19 status: Positive
[2023-09-26] MEDS: DEXAMETHASONE 10 MG/ML VIAL 6 MG IV (08:33)
[2023-09-26] MEDS: AZITHROMYCIN 250 MG TABLET 500 MG PO (08:35)
[2023-09-26] MEDS: HEPARIN 5,000 UNIT/ML VIAL 5000 UNIT SUBCUT (08:37)
[2023-09-26] MEDS: FAMOTIDINE 20 MG/2 ML VIAL IV (08:38)
[2023-09-26] MEDS: TORSEMIDE 10 MG TABLET 40 MG PO (08:39)
[2023-09-26] MEDS: guaiFENesin ER 600 MG TAB PO (08:39)
[2023-09-26] MEDS: SODIUM CHLORIDE 0.9% FLUSH 10 ML IV (08:40)
[2023-09-26] MEDS: carvediloL 12.5 MG TABLET PO (08:44)
[2023-09-26] MEDS: allopurinoL 100 MG TABLET PO (08:46)
[2023-09-26] MEDS: INSULIN GLARGINE 100 UNIT/ML 3ML PEN 35 UNIT SUBCUT (08:48)
--- NOTE | 2023-09-26 10:55 | PM.DS.1 ---
History of Present Illness History of Present Illness Chief complaint: Oxygen sats at 74% Narrative: Hannah Martinez is an 78yo F with PMH of ESRD on MWF dialysis, DM2, HTN and gout who presents with worsening SOB and found to be COVID positive. Patient daughter is at bedside and giving history as well. Patient hasn't felt well since [place], when she developed a flu-like illness. She continued to worsen in terms of her dyspnea so daughter checked her O2 sats and she was 74% on room air. She was brought to our ED and was COVID positive. ABG showed low pO2. Placed on HFNC and was on up to 50L but has now been weaned down to 35L and 50%. ED was working on transfer for her dialysis, which she last received on Friday 09/22. She currently feels comfortable at rest while on HFNC. Says her breathing is much better then when she came in. She would like to be full code because other than dialysis she is otherwise healthy. She denies CP, NV, abd pain or diarrhea. Discharge Providers Provider Date of admission: 09/25/23 16:51 Discharge Date: 09/26/23 Consults: 09/25/23 17:18 Consult to Tele-land use planner Routine Comment: Consulting Provider: [facility] [employer] Reason for consultation: [employer] services 09/25/23 19:27 Consult to Pastoral Services Routine Comment: pt request Discharge provider: Rowdy Flores DO Summary Hospital Course Discharge Diagnosis: # acute hypoxic resp failure 2/2 COVID pneumonia -COVID positive on PCR -CXR with bilateral patchy infiltrates R>L, repeat CXR to look for improvement -continue decadron and remdesivir -wean O2 as able, currently on 35L and 50% -continue torsemide to keep dry -procal 0.23, start rocephin and azithro in case of bacterial superinfection -duonebs, mucinex, tesrosalio antonio PRN # ESRD on HD -patient last dialyzed on 09/22 -electrolytes, BUN and bicarb not concerning at this time -continue to monitor with daily BMP's -watch fluid status carefully, avoid IVF -attempt transfer in next 24-48hrs for dialysis # DM2 -continue lantus 30u BID due to hyperglycemia with steroids -high dose SSI -carb diet # HTN -continue coreg and amlodipine # gout -continue allopurinol Hospital Course: Admitted for COVID after sitting in ED for 42 hours awaiting transfer for dialysis. Patient requiring HFNC, but mainly for humidification per RT. Able to wean to NRB mask for transport to [facility]. Accepted to [facility] by Dr. Maldonado land use planner. Exam Vital Signs (past 8 hours): - 09/26/23 03:00 09/26/23 03:01 09/26/23 03:01 Temperature Pulse Rate 54 L 60 Respiratory Rate 23 25 H Blood Pressure 135/64 Pulse Oximetry 90 L 94 Oxygen Delivery Method 09/26/23 03:30 09/26/23 04:00 09/26/23 04:00 Temperature Pulse Rate 52 L 55 L Respiratory Rate 22 21 Blood Pressure 150/64 H Pulse Oximetry 91 92 Oxygen Delivery Method 09/26/23 04:30 09/26/23 05:00 09/26/23 05:00 Temperature Pulse Rate 53 L Respiratory Rate 22 Blood Pressure 158/69 H Pulse Oximetry 91 Oxygen Delivery Method Heated High Flow 09/26/23 05:00 09/26/23 05:25 09/26/23 05:30 Temperature Pulse Rate 59 L 59 L 56 L Respiratory Rate 22 20 Blood Pressure Pulse Oximetry 95 92 98 Oxygen Delivery Method 09/26/23 06:00 09/26/23 06:30 09/26/23 07:00 Temperature Pulse Rate 56 L 55 L 51 L Respiratory Rate 24 22 20 Blood Pressure Pulse Oximetry 98 98 97 Oxygen Delivery Method 09/26/23 07:30 09/26/23 08:00 09/26/23 08:28 Temperature 96.1 F L Pulse Rate 51 L 57 L Respiratory Rate 21 22 Blood Pressure Pulse Oximetry 96 96 Oxygen Delivery Method 09/26/23 08:30 09/26/23 08:40 09/26/23 08:42 Temperature Pulse Rate 55 L 62 Respiratory Rate 23 24 Blood Pressure 177/72 H Pulse Oximetry 96 92 Oxygen Delivery Method 09/26/23 08:42 09/26/23 08:43 09/26/23 08:43 Temperature Pulse Rate 63 63 Respiratory Rate 29 H 29 H Blood Pressure 166/72 H Pulse Oximetry 93 97 Oxygen Delivery Method 09/26/23 08:44 09/26/23 09:00 09/26/23 09:30 Temperature Pulse Rate 62 60 59 L Respiratory Rate 23 23 Blood Pressure 166/72 H Pulse Oximetry 100 100 Oxygen Delivery Method 09/26/23 10:00 Temperature Pulse Rate 61 Respiratory Rate 27 H Blood Pressure Pulse Oximetry 98 Oxygen Delivery Method Oxygen Delivery Method Heated High Flow Oxygen Flow Rate 35 Narrative Exam Narrative: GEN: no acute distress, breathing comfortably on HFNC HEENT: moist mucous membranes, PERRL NECK: trachea midline, no JVD CV: regular rate and rhythm, no murmurs PULM: coarse breath sounds bilaterally ABD: soft, nontender, nondistended, no organomegaly EXT: warm and well perfused with no edema NEURO: awake, alert, oriented, no focal deficits Objective Labs 09/26/23 04:50 09/26/23 04:50 Labs: Laboratory Results - last 24 hr 09/25/23 09/25/23 09/26/23 04:15 18:17 04:50 WBC 10.6 RBC 2.64 L Hgb 8.1 L Hct 24.0 L MCV 90.9 MCH 30.8 MCHC 33.9 RDW 16.4 H Plt Count 364 Neut % (Auto) 78.0 H Lymph % (Auto) 12.4 L [place] % (Auto) 7.7 Eos % (Auto) 1.7 L Baso % (Auto) 0.2 Neut # (Auto) 8200 H Lymph # (Auto) 1300 [place] # (Auto) 800 Eos # (Auto) 200 Baso # (Auto) 0 Sodium 139 Potassium 4.8 Chloride 100 Carbon Dioxide 25 BUN 98 H Creatinine 8.93 H* Estimated GFR 4 L BUN/Creatinine Ratio 11.0 Glucose 44 L* Calcium 8.9 Magnesium 2.7 H 2.8 H Procalcitonin 0.23 Nasal Screen MRSA (PCR) Not detected [facility] Medical History (Updated 09/25/23 @ 18:49 by Nguyen Asencio MD) Diabetes Hypertension Social History household members: children Smoking Status: Never smoker alcohol intake: never Discharge Plan Discharge Plan Patient Disposition: Xfer [facility] Quality VTE Deep Vein Thrombosis/Pulmonary Embolism Present on Admission: No
--- NOTE | 2023-09-26 11:23 | PC.NURSE ---
Discharge note Report given to RN at [facility] and Critical Care transport. Pt VSS at time of transport. Pt connected to critical care transport high flow.
--- NOTE | 2023-09-26 12:57 | CM.DPNOTE ---
DCP Note Transfer to [place], further management of COVID+ infection , dialysis JW
== END 2023-09-26 11:28 | disposition short-term general hospital (02) | DRG 177 ==
LOC: ED 09-25 16:32 → AC 09-25 16:52 → ICU 09-25 17:46
PROVIDERS: Emergency Medicine; Admitting Provider Student in an Organized Health Care Education/Training Program; Emergency Provider Emergency Medicine; Referring Provider Emergency Medicine; Visit Provider Student in an Organized Health Care Education/Training Program
DX: U07.1 COVID-19 (principal); J12.82 Pneumonia due to coronavirus disease 2019; J96.01 Acute respiratory failure with hypoxia; N18.6 End stage renal disease; I12.0 Hypertensive chronic kidney disease with stage 5 chronic kidney disease or end stage renal disease; E11.22 Type 2 diabetes mellitus with diabetic chronic kidney disease; E11.65 Type 2 diabetes mellitus with hyperglycemia; M10.9 Gout, unspecified; E78.5 Hyperlipidemia, unspecified; E11.649 Type 2 diabetes mellitus with hypoglycemia without coma; Z79.4 Long term (current) use of insulin; Z99.2 Dependence on renal dialysis
CPT/HCPCS: 0241U; 36415; 36600; 71045; 80048; 80053; 81001; 82805; 82962; 83605; 83735; 83880; 84145; 84484; 85025; 87797; 93005; 93010; 96365; 96366; 96367; 96372; 96375; 96376; 99284; 99285; J0696; J1100; J1644; J1650